=== PATIENT | male | born 1970 | race Caucasian/White ===

== ENCOUNTER 2017-06-20 11:53 | Inpatient (IN) | payer SELFPAY ==
[2017-06-20 12:23] LABS: BASO % 0.5 % (0.0-2.0); EOS # 0.1 K/uL (0.0-0.7); EOS % 1.3 % (0.0-4.0); HEMOGLOBIN 12.9 g/dL (12.0-18.0); LYMPH # 0.9 K/uL (1.0-4.3); LYMPH % 11.8 % (20.0-40.0); MEAN CELL VOLUME 95.4 fL (80.0-94.0); MEAN CORPUSCULAR HEMOGLOBIN 32.7 pg (27.0-31.0); MEAN CORPUSCULAR HGB CONC 34.3 g/dL (33.0-37.0); MEAN PLATELET VOLUME 6.7 fL (7.2-11.7); MONO # 0.9 K/uL (0.0-0.8); MONO % 12.4 % (0.0-10.0); NEUT # 5.6 K/uL (1.8-7.0); RBC 3.95 Mil/uL (4.40-5.90); RED CELL DISTRIBUTION WIDTH 15.6 % (11.5-14.5); WHITE BLOOD COUNT 7.6 K/uL (4.8-10.8)
--- NOTE | 2017-06-20 12:25 | C.PDOC ---
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 PER EMS, WITNESSED PT FALL WHILE WALKING. SZ LIKE ACTIVITY. APPEARED POST ICTAL PER EMS, +AOB. CURRENT MS SAME WHEN FOUND ON SCENE. UNK LANGUAGE. ROS UTO EXAM MILD DIST HEENT ATRAUM ANICTERIC NEURO UNABLE TO ASSESS MENTAL STATUS DUE TO LANG BARRIER; NO GROSS FOCAL MOTOR FACIAL OR CEREB DEF. PSYCH UNCOOPERATIVE W VERBAL INTERVENTION, PULLING OFF LINES AND ATTEMPTING TO PUT DOWN BED RAIL. SKIN WARM DRY NARD EXT ATRAUM AROM WO DIFF REMAINDER NEG Time Seen by Provider: 06/20/17 12:22 Chief Complaint (Nursing): Altered Mental Status History Per: EMS History/Exam Limitations: Clinical Condition Past Medical History Reviewed: Historical Data, Nursing Documentation, Vital Signs Vital Signs: Last Vital Signs Temp 98.4 F 06/20/17 16:06 Pulse 77 06/20/17 16:06 Resp 17 06/20/17 16:06 BP 158/106 H 06/20/17 16:06 Pulse Ox 99 06/20/17 16:06 Family History: States: No Known Family Hx - Social History Hx Alcohol Use: Yes (ETOH ODOR PRESENT) Hx Substance Use: No (UNKNOWN) - Immunization History Hx Tetanus Toxoid Vaccination: No Hx Influenza Vaccination: No Hx Pneumococcal Vaccination: No Review Of Systems Review Of Systems: ROS cannot be obtained secondary to pt's inabilty to answer questions. Physical Exam - Physical Exam Appears: Non-toxic, No Acute Distress, Other (UNCOOPERATIVE W VERBAL INTERVENTION, PULLING OFF LINES AND ATTEMPTING TO PUT DOWN BED RAIL. ) Skin: Warm, Dry, No Rash Head: Normacephalic Eye(s): bilateral: PERRL (anicteric) Nose: Normal Oral Mucosa: Moist Lips: Normal Appearing Neck: Normal ROM Chest: Symmetrical Cardiovascular: Rhythm Regular, No Murmur Respiratory: Normal Breath Sounds, No Accessory Muscle Use Extremity: Normal ROM, No Deformity, No Swelling Neurological/Psych: Other (UNABLE TO ASSESS MENTAL STATUS DUE TO LANG BARRIER; NO GROSS FOCAL MOTOR FACIAL OR CEREB DEF. ) ED Course And Treatment - Laboratory Results Result Diagrams: 06/20/17 12:15 06/20/17 12:15 ECG: Interpreted By Me ECG Rhythm: Sinus Rhythm ECG Interpretation: Normal Rate From EC Progress - Re-Evaluation Re-evaluation Note: 06/20/17 15:19 VIA TRANS IMPROVED MS, CALM COOPERATIVE. PS W INTERMIT DIZZY NEAR SYNCOPE. PS WAS WALKING TO D WHEN HAD RECURRENT EPISODE. DENIES FAIRCHILD, CP, ABD PAIN. CURRENTLY ASYMPT. DOES NOT KNOW NAME OF PMD "MY BROTHER HAS HIS INFO". AO3, NO FOCAL NEURO DEF. 06/20/17 15:26 PT INFO KHARI ROMAN 72. PREV VISIT 2014 [id number] 06/20/17 15:48 D/W DR Timi ROMAN AWARE OF ER FINDINGS WILL ADMIT - Data Reviewed Data Reviewed: Lab, Diagnostic imaging, EKG, Old records - Critical Care Citical Care: Excluding Proc Time Critical Care Time: 90 minutes Disposition Counseled Patient/Family Regarding: Studies Performed, Diagnosis - Disposition Disposition: HOSPITALIZED Disposition Time: 15:28 Condition: STABLE - POA Present On Arrival: Falls Or Trauma - Clinical Impression Clinical Impression: Near syncope, Altered mental state - Scribe Statement The provider has reviewed the documentation as recorded by the Scribe (Makenzie Adorno) All medical record entries made by the Scribe were at my direction and personally dictated by me. I have reviewed the chart and agree that the record accurately reflects my personal performance of the history, physical exam, medical decision making, and the department course for this patient. I have also personally directed, reviewed, and agree with the discharge instructions and disposition. Decision To Admit - Pt Status Changed To: Hospital Disposition Of: Inpatient - Admit Certification Admit to Inpatient:: After my assessment, the patient will require hospitalization for at least two midnights. This is because of the severity of symptoms shown, intensity of services needed, and/or the medical risk in this patient being treated as an outpatient. - InPatient: Physician Admission Certification:: SEE NOTE - . Bed Request Type: Telemetry Admitting Physician: Chepe Roman Patient Diagnosis: Near syncope, Altered mental state
[2017-06-20 12:34] LABS: ALBUMIN 3.8 g/dL (3.5-5.0); ALT/SGPT 24 U/L (21-72); AST/SGOT 31 U/L (17-59); BLOOD UREA NITROGEN 9 mg/dL (9-20); CALCIUM 8.9 mg/dl (8.6-10.4); GFR AFRICAN-AMERICAN > 60; GFR NON-AFRICAN AMERICAN > 60
--- NOTE | 2017-06-20 12:41 | RAD ---
PROCEDURE: CHEST RADIOGRAPH, 1 VIEW HISTORY: AMS COMPARISON: None available. FINDINGS: LUNGS: Clear. PLEURA: No pneumothorax or pleural fluid seen. CARDIOVASCULAR: Normal. OSSEOUS STRUCTURES: No significant abnormalities. VISUALIZED UPPER ABDOMEN: Normal. OTHER FINDINGS: None. IMPRESSION: No active disease.
[2017-06-20 12:56] LABS: URINE BILIRUBIN NEGATIVE (NEGATIVE); URINE BLOOD NEGATIVE (NEGATIVE); URINE CLARITY Clear (Clear); URINE COLOR Yellow (YELLOW); URINE GLUCOSE (UA) NORMAL (Normal); URINE LEUKOCYTE ESTERASE TRACE Leu/uL (Negative); URINE PROTEIN NEGATIVE (NEGATIVE); URINE UROBILINOGEN NORMAL mg/dL (0.2-1.0)
[2017-06-20 12:56] LABS: INR 1.1; PROTHROMBIN TIME 12.1 SECONDS (9.7-12.2)
[2017-06-20 13:05] LABS: VENOUS BLOOD GAS BASE EXCESS -4.4 mmol/L (0.0-2.0); VENOUS BLOOD GAS PCO2 39 mmHg (40-60); VENOUS BLOOD GAS PO2 41 mm/Hg (30-55); VENOUS BLOOD PH 7.34 (7.32-7.43)
[2017-06-20 13:24] LABS: BARBITURATES, UR NEGATIVE (NEGATIVE); BENZODIAZEPINES, UR NEGATIVE (NEGATIVE); OPIATES, UR NEGATIVE (NEGATIVE); PHENCYCLIDINE, UR NEGATIVE (NEGATIVE)
--- NOTE | 2017-06-20 14:15 | CT ---
PROCEDURE: CT HEAD WITHOUT CONTRAST. HISTORY: AMS COMPARISON: None available. TECHNIQUE: Axial computed tomography images were obtained through the head/brain without intravenous contrast. Radiation dose: Total exam DLP = 992.02 mGy-cm. This CT exam was performed using one or more of the following dose reduction techniques: Automated exposure control, adjustment of the mA and/or kV according to patient size, and/or use of iterative reconstruction technique. FINDINGS: HEMORRHAGE: No intracranial hemorrhage. BRAIN: No mass effect or edema. Mild atrophy slightly greater than expected for patient age. Mild periventricular white matter lucency consistent with chronic microvascular ischemic change. No evidence of acute infarct. VENTRICLES: Unremarkable. No hydrocephalus. CALVARIUM: Unremarkable. PARANASAL SINUSES: Mild chronic ethmoid and right maxillary sinusitis. MASTOID AIR CELLS: Unremarkable as visualized. No inflammatory changes. OTHER FINDINGS: None. IMPRESSION: Mild atrophy and chronic white matter ischemic change. No intracranial mass, hemorrhage or evidence of acute infarct.
--- NOTE | 2017-06-20 18:01 | CP.PCM.HP ---
<Armin Linton - Last Filed: 06/20/17 18:24> History of Present Illness - History of Present Illness History of Present Illness: HPI: Patient is a 47M with an unknown medical history who is BIBA after being found having what looked like a seizure to EMS and falling to the ground and being found confused. The patient is awake on exam and does not remember any of this happening. He states that he was never outside today. Dr. Félix Russell speaks the patients language and was able to translate. Thru the entire interview the patient was not making much sense. His speech seemed tangential in nature. For instance, the patient would state that he became dizzy on his way home but then states he never left the house. EMS found this patient outside. When questioned about his emergency contact he would say it is his , then his girlfriend, then his sister. At times he was asked to slow down his speech but was unable to do so. When asked if the patient takes medications he first states he takes whatever is laying around, then states he takes medication for depression that a doctor of unknown name prescribes him. He states he has not seen this doctor in 4 years. We asked him to write down the name of the doctor but his writing was strange and illegible. The letter appeared very close together and then he crossed out some of the letters. Someone called the ED saying it was his and that she would be at the hospital in 45 minutes. When I called the number back to get more information the person who answered said the did not know what i was talking about. PMH: unknown PSH: unknown FH: unknown SH: unknown Meds: unknown All: unknown PMD: unknown Code Status: unknown ROS: unattainable Present on Admission - Present on Admission Any Indicators Present on Admission: No Review of Systems - Review of Systems Review of Systems: unable to ellicit Past Patient History - Past Social History Smoking Status: Unknown If Ever Smoked - PSYCHIATRIC Hx Substance Use: No (UNKNOWN) - SURGICAL HISTORY Hx Surgeries: No (UNKNOWN) - ANESTHESIA Hx Anesthesia: No Meds Allergies/Adverse Reactions: Allergies Allergy/AdvReac Type Severity Reaction Status Date / Time No Known Allergies Allergy Verified 06/20/17 18:02 Physical Exam - Constitutional Appears: Confused - Head Exam Head Exam: ATRAUMATIC, NORMAL INSPECTION, NORMOCEPHALIC - Eye Exam Pupil Exam: NORMAL ACCOMODATION, PERRL Additional comments: pinpoint - ENT Exam ENT Exam: Mucous Membranes Moist - Neck Exam Neck exam: Positive for: Normal Inspection - Respiratory Exam Respiratory Exam: Clear to Auscultation Bilateral, NORMAL BREATHING PATTERN - Cardiovascular Exam Cardiovascular Exam: REGULAR RHYTHM - GI/Abdominal Exam GI & Abdominal Exam: Normal Bowel Sounds, Soft. absent: Distended, Tenderness - Extremities Exam Extremities exam: Positive for: normal inspection. Negative for: joint swelling , tenderness - Back Exam Back exam: NORMAL INSPECTION - Neurological Exam Neurological exam: Alert, Oriented x3 - Psychiatric Exam Additional comments: confused, tangetial speech - Skin Skin Exam: Dry, Intact, Normal Color, Warm Results - Vital Signs Recent Vital Signs: Last Vital Signs Temp 98.4 F 06/20/17 16:06 Pulse 74 06/20/17 16:32 Resp 17 06/20/17 16:32 BP 156/97 H 06/20/17 16:32 Pulse Ox 100 06/20/17 16:32 - Labs Result Diagrams: 06/20/17 12:15 06/20/17 12:15 Labs: Laboratory Results - last 24 hr 06/20/17 06/20/17 06/20/17 11:58 12:15 12:15 WBC 7.6 RBC 3.95 L Hgb 12.9 Hct 37.7 MCV 95.4 H MCH 32.7 H MCHC 34.3 RDW 15.6 H Plt Count 443 H MPV 6.7 L Neut % (Auto) 74.0 Lymph % (Auto) 11.8 L [place] % (Auto) 12.4 H Eos % (Auto) 1.3 Baso % (Auto) 0.5 Neut # (Auto) 5.6 Lymph # (Auto) 0.9 L [place] # (Auto) 0.9 H Eos # (Auto) 0.1 Baso # (Auto) 0.0 PT INR APTT pO2 VBG pH VBG pCO2 VBG HCO3 VBG Total CO2 VBG O2 Sat (Calc) VBG Base Excess VBG Potassium Glucose Lactate Sodium 135 Potassium 4.3 Chloride 101 Carbon Dioxide 22 Anion Gap 16 BUN 9 Creatinine 0.9 Est GFR ( Amer) > 60 Est GFR (Non-Af Amer) > 60 POC Glucose (mg/dL) 117 H Random Glucose 108 Calcium 8.9 Total Bilirubin 0.3 AST 31 ALT 24 Alkaline Phosphatase 69 Ammonia Troponin I < 0.0120 Total Protein 7.4 Albumin 3.8 Globulin 3.6 Albumin/Globulin Ratio 1.0 Venous Blood Potassium Urine Color Urine Clarity Urine pH Ur Specific [place] Urine Protein Urine Glucose (UA) Urine Ketones Urine Blood Urine Nitrate Urine Bilirubin Urine Urobilinogen Ur Leukocyte Esterase Urine WBC (Auto) Urine RBC (Auto) Urine Opiates Screen Urine Methadone Screen Ur Barbiturates Screen Ur Phencyclidine Scrn Ur Amphetamines Screen U Benzodiazepines Scrn U Oth Cocaine Metabols U Cannabinoids Screen Alcohol, Quantitative < 10 06/20/17 06/20/17 06/20/17 12:38 12:42 12:45 WBC RBC Hgb Hct MCV MCH MCHC RDW Plt Count MPV Neut % (Auto) Lymph % (Auto) [place] % (Auto) Eos % (Auto) Baso % (Auto) Neut # (Auto) Lymph # (Auto) [place] # (Auto) Eos # (Auto) Baso # (Auto) PT 12.1 INR 1.1 APTT 25 pO2 VBG pH VBG pCO2 VBG HCO3 VBG Total CO2 VBG O2 Sat (Calc) VBG Base Excess VBG Potassium Glucose Lactate Sodium Potassium Chloride Carbon Dioxide Anion Gap BUN Creatinine Est GFR ( Amer) Est GFR (Non-Af Amer) POC Glucose (mg/dL) Random Glucose Calcium Total Bilirubin AST ALT Alkaline Phosphatase Ammonia 16 Troponin I Total Protein Albumin Globulin Albumin/Globulin Ratio Venous Blood Potassium Urine Color Yellow Urine Clarity Clear Urine pH 5.0 Ur Specific [place] 1.009 Urine Protein Negative Urine Glucose (UA) Normal Urine Ketones Negative Urine Blood Negative Urine Nitrate Negative Urine Bilirubin Negative Urine Urobilinogen Normal Ur Leukocyte Esterase Trace Urine WBC (Auto) 1 Urine RBC (Auto) 2 Urine Opiates Screen Urine Methadone Screen Ur Barbiturates Screen Ur Phencyclidine Scrn Ur Amphetamines Screen U Benzodiazepines Scrn U Oth Cocaine Metabols U Cannabinoids Screen Alcohol, Quantitative 06/20/17 06/20/17 12:45 12:55 WBC RBC Hgb Hct MCV MCH MCHC RDW Plt Count MPV Neut % (Auto) Lymph % (Auto) [place] % (Auto) Eos % (Auto) Baso % (Auto) Neut # (Auto) Lymph # (Auto) [place] # (Auto) Eos # (Auto) Baso # (Auto) PT INR APTT pO2 41 VBG pH 7.34 VBG pCO2 39 L VBG HCO3 20.8 VBG Total CO2 22.2 VBG O2 Sat (Calc) 77.5 H VBG Base Excess -4.4 L VBG Potassium 4.0 Glucose 117 H Lactate 1.0 Sodium 135.0 Potassium Chloride 106.0 Carbon Dioxide Anion Gap BUN Creatinine Est GFR ( Amer) Est GFR (Non-Af Amer) POC Glucose (mg/dL) Random Glucose Calcium Total Bilirubin AST ALT Alkaline Phosphatase Ammonia Troponin I Total Protein Albumin Globulin Albumin/Globulin Ratio Venous Blood Potassium 4.0 Urine Color Urine Clarity Urine pH Ur Specific [place] Urine Protein Urine Glucose (UA) Urine Ketones Urine Blood Urine Nitrate Urine Bilirubin Urine Urobilinogen Ur Leukocyte Esterase Urine WBC (Auto) Urine RBC (Auto) Urine Opiates Screen Negative Urine Methadone Screen Negative Ur Barbiturates Screen Negative Ur Phencyclidine Scrn Negative Ur Amphetamines Screen Negative U Benzodiazepines Scrn Negative U Oth Cocaine Metabols Negative U Cannabinoids Screen Negative Alcohol, Quantitative Assessment & Plan (1) Altered mental state Assessment and Plan: unknown patients baseline CT head did not show any blood or masses MRI unable to be done as we have no idea wether patient has metal or previous surgeries, will reevaluate once get in contact with family member Drug tox negative, ordered blood tox screen All labs normal, sugar normal ordered EEG Consulted Neuro (Arriaga) Ordered CTA Ordered ECHO Troponin 1 negative follow up 2 Follow up EKGs as well admit to tele Status: Acute Priority: High <Chepe Russell - Last Filed: 06/20/17 20:34> Results - Vital Signs Recent Vital Signs: Last Vital Signs Temp 98.3 F 06/20/17 20:03 Pulse 74 06/20/17 20:03 Resp 13 06/20/17 20:03 BP 158/85 H 06/20/17 20:03 Pulse Ox 100 06/20/17 20:03 - Labs Result Diagrams: 06/20/17 12:15 06/20/17 12:15 Labs: Laboratory Results - last 24 hr 06/20/17 06/20/17 06/20/17 11:58 12:15 12:15 WBC 7.6 RBC 3.95 L Hgb 12.9 Hct 37.7 MCV 95.4 H MCH 32.7 H MCHC 34.3 RDW 15.6 H Plt Count 443 H MPV 6.7 L Neut % (Auto) 74.0 Lymph % (Auto) 11.8 L [place] % (Auto) 12.4 H Eos % (Auto) 1.3 Baso % (Auto) 0.5 Neut # (Auto) 5.6 Lymph # (Auto) 0.9 L [place] # (Auto) 0.9 H Eos # (Auto) 0.1 Baso # (Auto) 0.0 PT INR APTT pO2 VBG pH VBG pCO2 VBG HCO3 VBG Total CO2 VBG O2 Sat (Calc) VBG Base Excess VBG Potassium Glucose Lactate Sodium 135 Potassium 4.3 Chloride 101 Carbon Dioxide 22 Anion Gap 16 BUN 9 Creatinine 0.9 Est GFR ( Amer) > 60 Est GFR (Non-Af Amer) > 60 POC Glucose (mg/dL) 117 H Random Glucose 108 Calcium 8.9 Total Bilirubin 0.3 AST 31 ALT 24 Alkaline Phosphatase 69 Ammonia Troponin I < 0.0120 Total Protein 7.4 Albumin 3.8 Globulin 3.6 Albumin/Globulin Ratio 1.0 Venous Blood Potassium Urine Color Urine Clarity Urine pH Ur Specific [place] Urine Protein Urine Glucose (UA) Urine Ketones Urine Blood Urine Nitrate Urine Bilirubin Urine Urobilinogen Ur Leukocyte Esterase Urine WBC (Auto) Urine RBC (Auto) Urine Opiates Screen Urine Methadone Screen Ur Barbiturates Screen Ur Phencyclidine Scrn Ur Amphetamines Screen U Benzodiazepines Scrn U Oth Cocaine Metabols U Cannabinoids Screen Alcohol, Quantitative < 10 06/20/17 06/20/17 06/20/17 12:38 12:42 12:45 WBC RBC Hgb Hct MCV MCH MCHC RDW Plt Count MPV Neut % (Auto) Lymph % (Auto) [place] % (Auto) Eos % (Auto) Baso % (Auto) Neut # (Auto) Lymph # (Auto) [place] # (Auto) Eos # (Auto) Baso # (Auto) PT 12.1 INR 1.1 APTT 25 pO2 VBG pH VBG pCO2 VBG HCO3 VBG Total CO2 VBG O2 Sat (Calc) VBG Base Excess VBG Potassium Glucose Lactate Sodium Potassium Chloride Carbon Dioxide Anion Gap BUN Creatinine Est GFR ( Amer) Est GFR (Non-Af Amer) POC Glucose (mg/dL) Random Glucose Calcium Total Bilirubin AST ALT Alkaline Phosphatase Ammonia 16 Troponin I Total Protein Albumin Globulin Albumin/Globulin Ratio Venous Blood Potassium Urine Color Yellow Urine Clarity Clear Urine pH 5.0 Ur Specific [place] 1.009 Urine Protein Negative Urine Glucose (UA) Normal Urine Ketones Negative Urine Blood Negative Urine Nitrate Negative Urine Bilirubin Negative Urine Urobilinogen Normal Ur Leukocyte Esterase Trace Urine WBC (Auto) 1 Urine RBC (Auto) 2 Urine Opiates Screen Urine Methadone Screen Ur Barbiturates Screen Ur Phencyclidine Scrn Ur Amphetamines Screen U Benzodiazepines Scrn U Oth Cocaine Metabols U Cannabinoids Screen Alcohol, Quantitative 06/20/17 06/20/17 12:45 12:55 WBC RBC Hgb Hct MCV MCH MCHC RDW Plt Count MPV Neut % (Auto) Lymph % (Auto) [place] % (Auto) Eos % (Auto) Baso % (Auto) Neut # (Auto) Lymph # (Auto) [place] # (Auto) Eos # (Auto) Baso # (Auto) PT INR APTT pO2 41 VBG pH 7.34 VBG pCO2 39 L VBG HCO3 20.8 VBG Total CO2 22.2 VBG O2 Sat (Calc) 77.5 H VBG Base Excess -4.4 L VBG Potassium 4.0 Glucose 117 H Lactate 1.0 Sodium 135.0 Potassium Chloride 106.0 Carbon Dioxide Anion Gap BUN Creatinine Est GFR ( Amer) Est GFR (Non-Af Amer) POC Glucose (mg/dL) Random Glucose Calcium Total Bilirubin AST ALT Alkaline Phosphatase Ammonia Troponin I Total Protein Albumin Globulin Albumin/Globulin Ratio Venous Blood Potassium 4.0 Urine Color Urine Clarity Urine pH Ur Specific [place] Urine Protein Urine Glucose (UA) Urine Ketones Urine Blood Urine Nitrate Urine Bilirubin Urine Urobilinogen Ur Leukocyte Esterase Urine WBC (Auto) Urine RBC (Auto) Urine Opiates Screen Negative Urine Methadone Screen Negative Ur Barbiturates Screen Negative Ur Phencyclidine Scrn Negative Ur Amphetamines Screen Negative U Benzodiazepines Scrn Negative U Oth Cocaine Metabols Negative U Cannabinoids Screen Negative Alcohol, Quantitative Attending/Attestation - Attestation I have personally seen and examined this patient.: Yes I have fully participated in the care of the patient.: Yes I have reviewed all pertinent clinical information: Yes Notes (Text): 06/20/17 20:23 Patient was seen and examined with Resident Dr. Rigoberto Linton in the ER. Assessment and Plan were discussed at length. Spoke with patient's family friend Cynthia Russell [phone], with whom the patient lives with along with a group of other friends at the same address. Cynthia explains: That the patient is followed by an unspecified physician at [facility] but could not provide name or contact information. She is not aware of what he is being treated for but states that at times he has high blood pressure. When asked if the patient ever has had any other medical history, she explained that he did not but does have a history of hearing voices and depression. She explained that he has not had any surgeries that required the implantation of any metal hardware. Although she and I speak the same language I could not understand an unspecified surgery that he had on his back while [place]: whether this was for his spine or just involving the skin of the back. When questioned whether the patient is at his baseline, Cynthia explained that he was. She also explained that at times that he drinks alcohol but has not recently, but she requested information concerning alcohol cessation for him, for which we will speak with social service liaison on 06/21/17. She was away at work when patient was found on the street around his living area , she could not provide details as to what happened. And as documented above, neither could the patient. So what exactly happened is in question. His home medications (information that Cynthia provided to ER nurse) were restarted. As blood pressure was elevated, Norvasc 5 mg PO 1x/day was also started. F/U EEG F/U CTA Head and Neck F/U 2D Echocardiogram F/U Lipid Panel, Prolactin Level, LFTs, TSH/T4, HGBA1C, RPR, Vitamin B12, Folate F/U further recommendations from Neurology and Psychiatry Medicine Team will attempt to reach out towards unspecified health care provider who prescribed patient his medications (a pictures of prescriptions were brought in by CYNTHIA). Cynthia stated that these prescriptions were filled at unspecified pharmacy on [facility] (she could not provide name of pharmacy nor its contact number). Chepe Russell D.O.
[2017-06-20] MEDS ORDERED: Valproate 1,000 MG in Sodium Chloride 0.9% 100 ML IVPB STA (20:21)
[2017-06-20] MEDS ORDERED: Iodixanol 320 MG/ML 100 ML BOTTLE IV ONE (20:25)
[2017-06-21 07:43] LABS: BASO % 0.7 % (0.0-2.0); EOS # 0.1 K/uL (0.0-0.7); EOS % 2.6 % (0.0-4.0); HEMOGLOBIN 13.2 g/dL (12.0-18.0); LYMPH # 1.5 K/uL (1.0-4.3); LYMPH % 26.4 % (20.0-40.0); MEAN CELL VOLUME 94.6 fL (80.0-94.0); MEAN CORPUSCULAR HEMOGLOBIN 32.5 pg (27.0-31.0); MEAN CORPUSCULAR HGB CONC 34.3 g/dL (33.0-37.0); MEAN PLATELET VOLUME 6.7 fL (7.2-11.7); MONO # 0.7 K/uL (0.0-0.8); NEUT # 3.2 K/uL (1.8-7.0); NEUT % 57.3 % (50.0-75.0); RBC 4.06 Mil/uL (4.40-5.90); RED CELL DISTRIBUTION WIDTH 15.1 % (11.5-14.5); WHITE BLOOD COUNT 5.6 K/uL (4.8-10.8)
[2017-06-21 08:05] LABS: BLOOD UREA NITROGEN 5 mg/dL (9-20); GFR AFRICAN-AMERICAN > 60; GFR NON-AFRICAN AMERICAN > 60
[2017-06-21 08:06] LABS: CALCIUM 8.8 mg/dl (8.6-10.4); HDL CHOLESTEROL 31 mg/dL (30-70)
[2017-06-21 08:17] LABS: LDL CHOLESTEROL 83 mg/dL (0-129)
[2017-06-21 08:20] LABS: PROLACTIN 36.4 ng/mL (3.7-17.9)
--- NOTE | 2017-06-21 10:28 | CT ---
PROCEDURE: CT Angiography of the neck and brain with contrast HISTORY: AMS COMPARISON: None available. TECHNIQUE: Contiguous helical/transaxial images of the neck were obtained from the level of the skull-base to the superior mediastinum in the arteriographic phase of enhancement. Coronal and sagittal reformats or also generated. . IV contrast dose: 100 cc Visipaque 320 Radiation Dose - DLP: 572.61 mGy-cm This CT exam was performed using one or more of the following dose reduction techniques: Automated exposure control, adjustment of the mA and/or kV according to patient size, and/or use of iterative reconstruction tech the. . FINDINGS: PE aortic arch widely patent despite mild partially calcified atherosclerotic plaque seen along the left lateral and inferior margins. . Three-vessel arch with calcifications seen along the origins of the left carotid artery. The common carotid artery, and carotid bifurcation widely patent the also despite some minor plaque changes seen at both carotid bifurcations. No evidence of significant stenosis or dissection. Arteries including the PE trace The distal internal carotid including the petrous cavernous and supraclinoid segments are also patent with moderate stenotic changes seen at the level of the left cavernous carotid artery due to prominent atherosclerotic plaque. There is marked asymmetry of the A1 segments left-side of which is much smaller in caliber than the right felt to represent an anatomic variation. Both A2 segments are effectively fed from the right side. No evidence of large aneurysm nor vascular malformation. The the vertebral artery is are patent throughout the there is marked asymmetry the with the right-side larger in caliber/more dominant than the left. . The P1 segments are diminutive de which is due to persistent origins of both posterior cerebral arteries. No evidence of large aneurysm or vascular malformation. OTHER FINDINGS: Mild mucoperiosteal inflammatory changes right maxillary antrum. IMPRESSION: Mild calcified atherosclerotic plaque both carotid bifurcations. Moderate the calcific plaque left cavernous carotid artery which appears to result in moderate stenotic changes of the left cavernous carotid artery. No evidence of large aneurysm nor vascular malformation. Note this report was placed in PA review folder for followup
--- NOTE | 2017-06-21 11:14 | PCM.PSYCH ---
Initial Psychiatric Evaluation - Initial Psychiatric Evaluation Type of Admission: Voluntary Legal Status: Capacity Chief Complaint (in patient's own words): "I felt dizzy" History of Present Illness and Precipitating Events: The pt is seen, chart reviewed and case discussed Consult was requested for his psych sxs. He is a 47 y/o [place] male, with one child but they are in [place]. He lives here with his uncle who is contacted bed site withhis permission. He is unemployed and [place] the [place]. Translation is done by aerial photograph interpreter via online. He reports depressive sxs but denies SI. He used to be psychotic in the past and [facility] [place] him Zyprexa 10 mg and Ambien 10 mg He is compliant he says. No more AVH or delusions. He is a bit odd but not bizarre or internally preoccupied No drugs but he drinks 1-2 beers sometimes past psych hx: No suicide but tx at [facility] Medical hx: Denies Family psych hx: Mo had psychosis and depression too Current Medications: Active Medications Generic Name Dose Route Start Last Admin Trade Name Gerard PRN Reason Stop Dose Admin Amlodipine Besylate 5 mg 06/20/17 21:00 06/21/17 09:53 Norvasc PO 5 mg DAILY ANTONY Administration Escitalopram Oxalate 10 mg 06/20/17 22:00 06/20/17 21:33 Lexapro PO 10 mg HS ANTONY Administration Olanzapine 10 mg 06/20/17 22:00 06/20/17 21:33 Zyprexa PO 10 mg HS ANTONY Administration Pneumococcal Polyvalent Vaccine 0.5 ml 06/23/17 10:00 Pneumovax 23 Vaccine IM 06/23/17 10:01 .ONCE ONE Zolpidem Tartrate 5 mg 06/20/17 22:00 06/20/17 21:33 Ambien PO 5 mg HS ANTONY Administration Past Psychiatric History - Past Psychiatric History Previous Treatment History: Intensive Outpatient Pertinent Medical Hx (Current Medical&Sleep Prob, Allergies): Allergies Allergy/AdvReac Type Severity Reaction Status Date / Time No Known Allergies Allergy Verified 06/20/17 18:02 Escitalopram [Lexapro] 10 mg PO HS 06/20/17 OLANZapine [ZyPREXA] 10 mg PO HS 06/20/17 Zolpidem [Ambien] 10 mg PO HS 04/18/18 Review of Systems - Neurological Neurological: Dizziness - Psychiatric Psychiatric: Abnormal Sleep Pattern, Anhedonia, Anxiety, Depression. absent: Hallucinations, Homicidal Ideation, Suicidal Ideation Mental Status Examination - Personal Presentation Personal Presentation: Looks older than stated age - Affect Affect: Constricted - Motor Activity Motor Activity: Calm - Reliability in Providing Information Reliability in Providing Information: Fair - Speech Speech: Organized - Mood Mood: Anxious - Formal Thought Process Formal Thought Process: No Impairment - Cognitive Functions Orientation: Person, Place, Situation, Time Sensorium: Alert Attention/Concentration: Attentive Estimate of Intelligence: Average Judgement: Intact, as evidence by: Insight regarding need for hospitalization Memory: Recent intact, as evidence by: Ability to recall events of the day, Remote impaired as evidenced by: Inability to recall sig life events - Risk Risk: Diminished functioning - Strength & Assets Inventory Strength & Assets Inventory: Family support, Cooperative - Limitations Limitations: Other DSM 5 DX - DSM 5 DSM 5 Diagnosis: Schizoaffective d/o - depressed - Recommended/Plan of Treatment Treatment Recommendations and Plan of Treatment: Continue Zyprexa 10 mg/d Lexapro 10 mg/d started Support and psychoed Continue follow up at [facility] psych will sign off 32 min
--- NOTE | 2017-06-21 13:38 | CP.PCM.CON ---
History of Present Illness - History of Present Illness History of Present Illness: 47 yr old male who has a history of what may have been seizure, fell to the ground, and was confused. He has amnesia for the event, has not seen a physician for about 4 years, and speech was initially tangential. It was noted that he has a history of schizophrenia, and this was confirmed by his family. There was a report of dizziness as well, but no aphaisa, weakness, no headache, no prior report of epilepsy. PMH/PSH: as above. FH/SH: not known. All: nkda. on exam: Normal neurological exam. Past Patient History - Past Medical History & Family History Past Medical History?: Yes - Past Social History Smoking Status: Unknown If Ever Smoked - MUSCULOSKELETAL/RHEUMATOLOGICAL Hx Falls: Yes - PSYCHIATRIC Hx Substance Use: No (UNKNOWN) - SURGICAL HISTORY Hx Surgeries: No (UNKNOWN) Other/Comment: unable to obtain further information as patient doesnt want to answer questions - ANESTHESIA Hx Anesthesia: No (unable to obtain) Meds Allergies/Adverse Reactions: Allergies Allergy/AdvReac Type Severity Reaction Status Date / Time No Known Allergies Allergy Verified 06/20/17 18:02 - Medications Medications: Current Medications Amlodipine Besylate (Norvasc) 5 mg PO DAILY [facility] Last Admin: 06/21/17 09:53 Dose: 5 mg Escitalopram Oxalate (Lexapro) 10 mg PO [facility] Last Admin: 06/20/17 21:33 Dose: 10 mg Olanzapine (Zyprexa) 10 mg PO [facility] Last Admin: 06/20/17 21:33 Dose: 10 mg Pneumococcal Polyvalent Vaccine (Pneumovax 23 Vaccine) 0.5 ml IM .ONCE ONE Stop: 06/23/17 10:01 Zolpidem Tartrate (Ambien) 5 mg PO [facility] Last Admin: 06/20/17 21:33 Dose: 5 mg Results - Vital Signs Recent Vital Signs: Last Vital Signs Temp 97.9 F 06/21/17 07:35 Pulse 63 06/21/17 07:35 Resp 20 06/21/17 07:35 BP 133/86 06/21/17 07:35 Pulse Ox 98 06/21/17 07:35 - Labs Result Diagrams: 06/21/17 07:35 06/21/17 07:35 Labs: Laboratory Results - last 24 hr 0406/20/17 06/21/17 12:15 20:53 07:35 WBC RBC Hgb Hct MCV MCH MCHC RDW Plt Count MPV Neut % (Auto) Lymph % (Auto) Stephens % (Auto) Eos % (Auto) Baso % (Auto) Neut # (Auto) Lymph # (Auto) Stephens # (Auto) Eos # (Auto) Baso # (Auto) Sodium 135 140 Potassium 4.3 4.3 Chloride 101 104 Carbon Dioxide 22 24 Anion Gap 16 16 BUN 9 5 L Creatinine 0.9 0.8 Est GFR ( Amer) > 60 > 60 Est GFR (Non-Af Amer) > 60 > 60 Random Glucose 108 94 Hemoglobin A1c Calcium 8.9 8.8 Total Bilirubin 0.3 AST 31 ALT 24 Alkaline Phosphatase 69 Troponin I < 0.0120 < 0.0120 < 0.0120 Total Protein 7.4 Albumin 3.8 Globulin 3.6 Albumin/Globulin Ratio 1.0 Triglycerides 80 Cholesterol 132 LDL Cholesterol Direct 83 HDL Cholesterol 31 Vitamin B12 304 Folate 6.0 Prolactin 36.4 H Alcohol, Quantitative < 10 06/21/17 06/21/17 07:35 07:35 WBC 5.6 RBC 4.06 L Hgb 13.2 Hct 38.4 MCV 94.6 H MCH 32.5 H MCHC 34.3 RDW 15.1 H Plt Count 421 H MPV 6.7 L Neut % (Auto) 57.3 Lymph % (Auto) 26.4 Stephens % (Auto) 13.0 H Eos % (Auto) 2.6 Baso % (Auto) 0.7 Neut # (Auto) 3.2 Lymph # (Auto) 1.5 Stephens # (Auto) 0.7 Eos # (Auto) 0.1 Baso # (Auto) 0.0 Sodium Potassium Chloride Carbon Dioxide Anion Gap BUN Creatinine Est GFR ( Amer) Est GFR (Non-Af Amer) Random Glucose Hemoglobin A1c 5.4 Calcium Total Bilirubin AST ALT Alkaline Phosphatase Troponin I Total Protein Albumin Globulin Albumin/Globulin Ratio Triglycerides Cholesterol LDL Cholesterol Direct HDL Cholesterol Vitamin B12 Folate Prolactin Alcohol, Quantitative - Imaging and Cardiology CT scan - head Additional comment: Ct head: normal EEG: normal, dictated. no seizures Assessment & Plan - Assessment and Plan (Free Text) Assessment: 47 yr old male with schizophrenia and most likely not a seizure, who will need psych follow up. Please reconsult prn. MD Sadie. DPN
--- NOTE | 2017-06-21 14:47 | CP.PCM.DIS ---
<Armin Linton - Last Filed: 06/21/17 16:54> Provider - Provider Date of Admission: 06/20/17 15:48 Attending physician: Chepe Russell MD Primary care physician: Caroline Renteria APN Consults: Neuro: Arriaga Psych: [place] Time Spent in preparation of Discharge (in minutes): 45 Diagnosis - Discharge Diagnosis (1) Altered mental state Status: Acute Priority: High Hospital Course - Lab Results Lab Results: Most Recent Lab Values WBC 5.6 K/uL (4.8-10.8) 06/21/17 07:35 RBC 4.06 Mil/uL (4.40-5.90) L 06/21/17 07:35 Hgb 13.2 g/dL (12.0-18.0) 06/21/17 07:35 Hct 38.4 % (35.0-51.0) 06/21/17 07:35 MCV 94.6 fL (80.0-94.0) H 06/21/17 07:35 MCH 32.5 pg (27.0-31.0) H 06/21/17 07:35 MCHC 34.3 g/dL (33.0-37.0) 06/21/17 07:35 RDW 15.1 % (11.5-14.5) H 06/21/17 07:35 Plt Count 421 K/uL (130-400) H 06/21/17 07:35 MPV 6.7 fL (7.2-11.7) L 06/21/17 07:35 Neut % (Auto) 57.3 % (50.0-75.0) 06/21/17 07:35 Lymph % (Auto) 26.4 % (20.0-40.0) 06/21/17 07:35 [place] % (Auto) 13.0 % (0.0-10.0) H 06/21/17 07:35 Eos % (Auto) 2.6 % (0.0-4.0) 06/21/17 07:35 Baso % (Auto) 0.7 % (0.0-2.0) 06/21/17 07:35 Neut # (Auto) 3.2 K/uL (1.8-7.0) 06/21/17 07:35 Lymph # (Auto) 1.5 K/uL (1.0-4.3) 06/21/17 07:35 [place] # (Auto) 0.7 K/uL (0.0-0.8) 06/21/17 07:35 Eos # (Auto) 0.1 K/uL (0.0-0.7) 06/21/17 07:35 Baso # (Auto) 0.0 K/uL (0.0-0.2) 06/21/17 07:35 PT 12.1 SECONDS (9.7-12.2) 06/20/17 12:38 INR 1.1 06/20/17 12:38 APTT 25 SECONDS (21-34) 06/20/17 12:38 pO2 41 mm/Hg (30-55) 06/20/17 12:55 VBG pH 7.34 (7.32-7.43) 06/20/17 12:55 VBG pCO2 39 mmHg (40-60) L 06/20/17 12:55 VBG HCO3 20.8 mmol/L 06/20/17 12:55 VBG Total CO2 22.2 mmol/L (22-28) 06/20/17 12:55 VBG O2 Sat (Calc) 77.5 % (40-65) H 06/20/17 12:55 VBG Base Excess -4.4 mmol/L (0.0-2.0) L 06/20/17 12:55 VBG Potassium 4.0 mmol/L (3.6-5.2) 06/20/17 12:55 Sodium 135.0 mmol/l (132-148) 06/20/17 12:55 Chloride 106.0 mmol/L (98-107) 06/20/17 12:55 Glucose 117 mg/dl (75-110) H 06/20/17 12:55 Lactate 1.0 mmol/L (0.7-2.1) 06/20/17 12:55 Sodium 140 mmol/L (132-148) 06/21/17 07:35 Potassium 4.3 mmol/L (3.6-5.2) 06/21/17 07:35 Chloride 104 mmol/L (98-107) 06/21/17 07:35 Carbon Dioxide 24 mmol/L (22-30) 06/21/17 07:35 Anion Gap 16 (10-20) 06/21/17 07:35 BUN 5 mg/dL (9-20) L 06/21/17 07:35 Creatinine 0.8 mg/dL (0.8-1.5) 06/21/17 07:35 Est GFR ( Amer) > 60 06/21/17 07:35 Est GFR (Non-Af Amer) > 60 06/21/17 07:35 POC Glucose (mg/dL) 117 mg/dL (65-110) H 06/20/17 11:58 Random Glucose 94 mg/dL (75-110) 06/21/17 07:35 Hemoglobin A1c 5.4 % (4.2-6.5) 06/21/17 07:35 Calcium 8.8 mg/dl (8.6-10.4) 06/21/17 07:35 Total Bilirubin 0.3 mg/dL (0.2-1.3) 06/20/17 12:15 AST 31 U/L (17-59) 06/20/17 12:15 ALT 24 U/L (21-72) 06/20/17 12:15 Alkaline Phosphatase 69 U/L (38-126) 06/20/17 12:15 Ammonia 16 umol/L (9-33) 06/20/17 12:42 Troponin I < 0.0120 ng/mL (0.00-0.120) 06/21/17 07:35 Total Protein 7.4 g/dL (6.3-8.3) 06/20/17 12:15 Albumin 3.8 g/dL (3.5-5.0) 06/20/17 12:15 Globulin 3.6 gm/dL (2.2-3.9) 06/20/17 12:15 Albumin/Globulin Ratio 1.0 (1.0-2.1) 06/20/17 12:15 Triglycerides 80 mg/dL (0-149) 06/21/17 07:35 Cholesterol 132 mg/dL (0-199) 06/21/17 07:35 LDL Cholesterol Direct 83 mg/dL (0-129) 06/21/17 07:35 HDL Cholesterol 31 mg/dL (30-70) 06/21/17 07:35 Vitamin B12 304 pg/mL (239-931) 06/21/17 07:35 Folate 6.0 ng/mL 06/21/17 07:35 Prolactin 36.4 ng/mL (3.7-17.9) H 06/21/17 07:35 Venous Blood Potassium 4.0 mmol/L (3.6-5.2) 06/20/17 12:55 Urine Color Yellow (YELLOW) 06/20/17 12:45 Urine Clarity Clear (Clear) 06/20/17 12:45 Urine pH 5.0 (5.0-8.0) 06/20/17 12:45 Ur Specific [place] 1.009 (1.003-1.030) 06/20/17 12:45 Urine Protein Negative mg/dL (NEGATIVE) 06/20/17 12:45 Urine Glucose (UA) Normal mg/dL (Normal) 06/20/17 12:45 Urine Ketones Negative mg/dL (NEGATIVE) 06/20/17 12:45 Urine Blood Negative (NEGATIVE) 06/20/17 12:45 Urine Nitrate Negative (NEGATIVE) 06/20/17 12:45 Urine Bilirubin Negative (NEGATIVE) 06/20/17 12:45 Urine Urobilinogen Normal mg/dL (0.2-1.0) 06/20/17 12:45 Ur Leukocyte Esterase Trace Elan/uL (Negative) 06/20/17 12:45 Urine WBC (Auto) 1 /hpf (0-5) 06/20/17 12:45 Urine RBC (Auto) 2 /hpf (0-3) 06/20/17 12:45 Urine Opiates Screen Negative (NEGATIVE) 06/20/17 12:45 Urine Methadone Screen Negative (NEGATIVE) 06/20/17 12:45 Ur Barbiturates Screen Negative (NEGATIVE) 06/20/17 12:45 Ur Phencyclidine Scrn Negative (NEGATIVE) 06/20/17 12:45 Ur Amphetamines Screen Negative (NEGATIVE) 06/20/17 12:45 U Benzodiazepines Scrn Negative (NEGATIVE) 06/20/17 12:45 U Oth Cocaine Metabols Negative (NEGATIVE) 06/20/17 12:45 U Cannabinoids Screen Negative (NEGATIVE) 06/20/17 12:45 Alcohol, Quantitative < 10 mg/dl (0-10) 06/20/17 12:15 - Hospital Course Hospital Course: Patient is a 47M with an unknown medical history who is BIBA after being found having what looked like a seizure to EMS and falling to the ground and being found confused. The patient is awake on exam and does not remember any of this happening. He states that he was never outside today. Dr. Félix Russell speaks the patients language and was able to translate. Thru the entire interview the patient was not making much sense. His speech seemed tangential in nature. For instance, the patient would state that he became dizzy on his way home but then states he never left the house. EMS found this patient outside. When questioned about his emergency contact he would say it is his , then his girlfriend, then his sister. At times he was asked to slow down his speech but was unable to do so. When asked if the patient takes medications he first states he takes whatever is laying around, then states he takes medication for depression that a doctor of unknown name prescribes him. He states he has not seen this doctor in 4 years. We asked him to write down the name of the doctor but his writing was strange and illegible. The letter appeared very close together and then he crossed out some of the letters. Someone called the ED saying it was his and that she would be at the hospital in 45 minutes. When I called the number back to get more information the person who answered said the did not know what i was talking about. Hospital Course: After speaking with family member they said that the way the patient is acting is his baseline. The patient lives with family and friends and does take 2nd gen antipsychotics as prescribed. I spoke with the patient LEONARDO she has been seeing Caroline Renteria and she describes that the patient as first seen in December of 2016 and was very poorly controlled at that time. She stated that the patient has been following up every 2 months and is much better controlled. She increased thew dose of zyprexa and this seemed to work. The GROCERY SUPERVISOR states that the patient was getting his medications form a DrDenisa in [place] that was giving it to his brother to send to him [place] the [place] but that has since stopped. the patient was instructed to follow up at [facility] as well as with his primary. We had the patient set up with [facility] so he could afford the visit as well as refill his medications with a one month supply. Dr. Félix Russell spoke with family and they are aware of the plan. All of there questions were answered. Discharge Exam - Head Exam Head Exam: ATRAUMATIC, NORMAL INSPECTION, NORMOCEPHALIC - Eye Exam Eye Exam: EOMI, Normal appearance, PERRL Pupil Exam: NORMAL ACCOMODATION, PERRL - Respiratory Exam Respiratory Exam: Clear to PA & Lateral, UNREMARKABLE - Cardiovascular Exam Cardiovascular Exam: REGULAR RHYTHM - GI/Abdominal Exam GI & Abdominal Exam: Normal Bowel Sounds - Neurological Exam Neurological exam: Alert, CN II-XII Intact, Normal Gait, Oriented x3, Reflexes Normal - Psychiatric Exam Psychiatric exam: Normal Affect, Normal Mood - Skin Skin Exam: Dry, Intact, Normal Color, Warm Discharge Plan - Discharge Medications Prescriptions: amLODIPine [Norvasc] 5 mg PO DAILY #30 tab Escitalopram [Lexapro] 10 mg PO HS #30 tab OLANZapine [Zyprexa] 10 mg PO HS #30 tab Zolpidem [Ambien] 10 mg PO HS #30 tab - Follow Up Plan Condition: STABLE Disposition: HOME/ ROUTINE Instructions: Heart Healthy Diet, Altered Mental Status (DC), Syncope (Fainting ) (DC), Amlodipine, Escitalopram, Olanzapine, Zolpidem Additional Instructions: Please continue to take you medications as prescribed. The nurse will hand you a detailed list of what to take and when to take it. I will also list them here. 1. Olanzapine 10mg by mouth with dinner 2. Lexapro 10mg by mouth with dinner 3. Ambien 10mg by mouth with dinner Please follow up at [facility] with Margarita Powers on 06/28/17. I have attached the information for you. The number is [phone]. Please continue to see you AGUILAR Renteria at your regular scheduled appointment Referrals: [facility] [Outside] <Chepe Russell - Last Filed: 06/21/17 20:02> Provider - Provider Date of Admission: 06/20/17 15:48 Attending physician: Chepe Russell MD Time Spent in preparation of Discharge (in minutes): 40 Hospital Course - Lab Results Lab Results: Most Recent Lab Values WBC 5.6 K/uL (4.8-10.8) 06/21/17 07:35 RBC 4.06 Mil/uL (4.40-5.90) L 06/21/17 07:35 Hgb 13.2 g/dL (12.0-18.0) 06/21/17 07:35 Hct 38.4 % (35.0-51.0) 06/21/17 07:35 MCV 94.6 fL (80.0-94.0) H 06/21/17 07:35 MCH 32.5 pg (27.0-31.0) H 06/21/17 07:35 MCHC 34.3 g/dL (33.0-37.0) 06/21/17 07:35 RDW 15.1 % (11.5-14.5) H 06/21/17 07:35 Plt Count 421 K/uL (130-400) H 06/21/17 07:35 MPV 6.7 fL (7.2-11.7) L 06/21/17 07:35 Neut % (Auto) 57.3 % (50.0-75.0) 06/21/17 07:35 Lymph % (Auto) 26.4 % (20.0-40.0) 06/21/17 07:35 [place] % (Auto) 13.0 % (0.0-10.0) H 06/21/17 07:35 Eos % (Auto) 2.6 % (0.0-4.0) 06/21/17 07:35 Baso % (Auto) 0.7 % (0.0-2.0) 06/21/17 07:35 Neut # (Auto) 3.2 K/uL (1.8-7.0) 06/21/17 07:35 Lymph # (Auto) 1.5 K/uL (1.0-4.3) 06/21/17 07:35 [place] # (Auto) 0.7 K/uL (0.0-0.8) 06/21/17 07:35 Eos # (Auto) 0.1 K/uL (0.0-0.7) 06/21/17 07:35 Baso # (Auto) 0.0 K/uL (0.0-0.2) 06/21/17 07:35 PT 12.1 SECONDS (9.7-12.2) 06/20/17 12:38 INR 1.1 06/20/17 12:38 APTT 25 SECONDS (21-34) 06/20/17 12:38 pO2 41 mm/Hg (30-55) 06/20/17 12:55 VBG pH 7.34 (7.32-7.43) 06/20/17 12:55 VBG pCO2 39 mmHg (40-60) L 06/20/17 12:55 VBG HCO3 20.8 mmol/L 06/20/17 12:55 VBG Total CO2 22.2 mmol/L (22-28) 06/20/17 12:55 VBG O2 Sat (Calc) 77.5 % (40-65) H 06/20/17 12:55 VBG Base Excess -4.4 mmol/L (0.0-2.0) L 06/20/17 12:55 VBG Potassium 4.0 mmol/L (3.6-5.2) 06/20/17 12:55 Sodium 135.0 mmol/l (132-148) 06/20/17 12:55 Chloride 106.0 mmol/L (98-107) 06/20/17 12:55 Glucose 117 mg/dl (75-110) H 06/20/17 12:55 Lactate 1.0 mmol/L (0.7-2.1) 06/20/17 12:55 Sodium 140 mmol/L (132-148) 06/21/17 07:35 Potassium 4.3 mmol/L (3.6-5.2) 06/21/17 07:35 Chloride 104 mmol/L (98-107) 06/21/17 07:35 Carbon Dioxide 24 mmol/L (22-30) 06/21/17 07:35 Anion Gap 16 (10-20) 06/21/17 07:35 BUN 5 mg/dL (9-20) L 06/21/17 07:35 Creatinine 0.8 mg/dL (0.8-1.5) 06/21/17 07:35 Est GFR ( Amer) > 60 06/21/17 07:35 Est GFR (Non-Af Amer) > 60 06/21/17 07:35 POC Glucose (mg/dL) 117 mg/dL (65-110) H 06/20/17 11:58 Random Glucose 94 mg/dL (75-110) 06/21/17 07:35 Hemoglobin A1c 5.4 % (4.2-6.5) 06/21/17 07:35 Calcium 8.8 mg/dl (8.6-10.4) 06/21/17 07:35 Total Bilirubin 0.3 mg/dL (0.2-1.3) 06/20/17 12:15 AST 31 U/L (17-59) 06/20/17 12:15 ALT 24 U/L (21-72) 06/20/17 12:15 Alkaline Phosphatase 69 U/L (38-126) 06/20/17 12:15 Ammonia 16 umol/L (9-33) 06/20/17 12:42 Troponin I < 0.0120 ng/mL (0.00-0.120) 06/21/17 07:35 Total Protein 7.4 g/dL (6.3-8.3) 06/20/17 12:15 Albumin 3.8 g/dL (3.5-5.0) 06/20/17 12:15 Globulin 3.6 gm/dL (2.2-3.9) 06/20/17 12:15 Albumin/Globulin Ratio 1.0 (1.0-2.1) 06/20/17 12:15 Triglycerides 80 mg/dL (0-149) 06/21/17 07:35 Cholesterol 132 mg/dL (0-199) 06/21/17 07:35 LDL Cholesterol Direct 83 mg/dL (0-129) 06/21/17 07:35 HDL Cholesterol 31 mg/dL (30-70) 06/21/17 07:35 Vitamin B12 304 pg/mL (239-931) 06/21/17 07:35 Folate 6.0 ng/mL 06/21/17 07:35 Prolactin 36.4 ng/mL (3.7-17.9) H 06/21/17 07:35 Venous Blood Potassium 4.0 mmol/L (3.6-5.2) 06/20/17 12:55 Urine Color Yellow (YELLOW) 06/20/17 12:45 Urine Clarity Clear (Clear) 06/20/17 12:45 Urine pH 5.0 (5.0-8.0) 06/20/17 12:45 Ur Specific [place] 1.009 (1.003-1.030) 06/20/17 12:45 Urine Protein Negative mg/dL (NEGATIVE) 06/20/17 12:45 Urine Glucose (UA) Normal mg/dL (Normal) 06/20/17 12:45 Urine Ketones Negative mg/dL (NEGATIVE) 06/20/17 12:45 Urine Blood Negative (NEGATIVE) 06/20/17 12:45 Urine Nitrate Negative (NEGATIVE) 06/20/17 12:45 Urine Bilirubin Negative (NEGATIVE) 06/20/17 12:45 Urine Urobilinogen Normal mg/dL (0.2-1.0) 06/20/17 12:45 Ur Leukocyte Esterase Trace Elan/uL (Negative) 06/20/17 12:45 Urine WBC (Auto) 1 /hpf (0-5) 06/20/17 12:45 Urine RBC (Auto) 2 /hpf (0-3) 06/20/17 12:45 Urine Opiates Screen Negative (NEGATIVE) 06/20/17 12:45 Urine Methadone Screen Negative (NEGATIVE) 06/20/17 12:45 Ur Barbiturates Screen Negative (NEGATIVE) 06/20/17 12:45 Ur Phencyclidine Scrn Negative (NEGATIVE) 06/20/17 12:45 Ur Amphetamines Screen Negative (NEGATIVE) 06/20/17 12:45 U Benzodiazepines Scrn Negative (NEGATIVE) 06/20/17 12:45 U Oth Cocaine Metabols Negative (NEGATIVE) 06/20/17 12:45 U Cannabinoids Screen Negative (NEGATIVE) 06/20/17 12:45 Alcohol, Quantitative < 10 mg/dl (0-10) 06/20/17 12:15 RPR Nonreactive (NONREACTIVE) 06/21/17 07:35 Attending/Attestation - Attestation I have personally seen and examined this patient.: Yes I have fully participated in the care of the patient.: Yes I have reviewed all pertinent clinical information, including history, physical exam and plan: Yes Notes (Text): 06/21/17 20:01 Patient was seen and examined shortly after resident. Assessment and Plan and discharge were gone over with Dr. Rigoberto Kathleen I also spoke with via phone with Mary Ann Russell and verbally explained discharge instructions. Cehpe Russell D.O.
--- NOTE | 2017-06-21 14:53 | CARD ---
APPROVED REPORT EKG Measurement Heart [id number] <Conclusion> Normal sinus rhythm Normal ECG
[2017-06-21 15:52] VITALS: BP 136/82; PULSE 72; RESP 18; TEMP 98; O2SAT 100
--- NOTE | 2017-06-22 12:39 | CARD ---
APPROVED REPORT EXAM: Two-dimensional and M-mode echocardiogram with Doppler and color Doppler. Other Information Quality : Good[employer] : INDICATION Syncope 2D DIMENSIONS IVSd0.7 (0.7-1.1cm)LVDd3.8 (3.9-5.9cm) PWd0.6 (0.7-1.1cm)LVDs2.3 (2.5-4.0cm) FS (%) 38.4 %LVEF (%)69.4 (>50%) M-Mode DIMENSIONS RVDd1.16 (2.1-3.2cm)Left Atrium (MM)2.90 (2.5-4.0cm) IVSd1.30 (0.7-1.1cm)Aortic Root2.85 (2.2-3.7cm) LVDd5.44 (4.0-5.6cm)Aortic Cusp Exc.1.97 (1.5-2.0cm) PWd0.93 (0.7-1.1cm)FS (%) 38 % LVDs3.38 (2.0-3.8cm)LVEF (%)67 (>50%) Mitral Valve MV E Szvdmqzz56.5cm/sMV A Dmzdzevs49.5cm/sE/A ratio2.0 TDI E/Lateral E'0.0E/Medial E'0.0 Tricuspid Valve TR Peak Ddctaent184lm/sTR Peak Gr.[id number] <Conclusion> poor window. short axis views are suboptimal. normal size la,lv & ra rv. normal lv wall motion,thickness,systolic & diastolic funciton with lvef of 55-60%. aortic valve not well seen & can not r/o bicuspid aortic valve. normal mitral,tv & probably pv. trace mtr,tr with normal pulmonary systolic pressures of 23 mm of hg. aortic root is normal size. no pericardial effusion seen.
[2017-06-23] MEDS ORDERED: Pneumococcal 23-Valent Vaccine IM ONE (10:00)
== END 2017-06-21 19:01 | disposition home or self-care (01) | DRG 885 ==
LOC: C.ER 11:53 → C.9E 15:48 → OBSVTOIN 15:48 → EDBD 15:48 → C.6T 19:54
PROVIDERS: ADMIT Family Medicine; ATTEND Family Medicine
DX: F20.9 Schizophrenia, unspecified (principal); R41.82 Altered mental status, unspecified